=== PATIENT | female | born 1970 | race Caucasian/White ===

== ENCOUNTER 2016-11-09 20:11 | Emergency (ER) | payer SELFPAY ==
[~2016-11-09] VITALS: Ht 157.5 cm; Wt 65.0 kg
[~2016-11-09 20:11] MED LIST: CIPR500T4 PO; IBUP-232 PO; MACR100C PO; PERC5TAB12 PO; SULF1SOL4 LEFT EYE; TOPI100 PO; VENL75 PO
[2016-11-09 20:17] VITALS: BP 154/74; PULSE 74; RESP 20; TEMP 98.3; O2SAT 100
[2016-11-09 20:49] LABS: BLOOD, URINE MOD (NEG); GLUCOSE,URINE NEG (NEG); KETONE, URINE NEG (NEG); NITRITE,URINE NEG (NEG)
[2016-11-09 21:09] LABS: MUCUS URINE OCC /lpf (OCC); URINE COLOR YELLOW (YELLW/STRAW)
[2016-11-09 21:10] LABS: BACTERIA, URINE OCC /hpf; COMMENT (UR) CULT NOT INDICATED; CULTURE IF INDICATED CULT NOT INDICATED; SQUAMOUS EPITHELIAL CELL URINE 0-5 /hpf (0-5); WBC, URINE 0-2 /hpf (0-5)
[2016-11-09 21:52] VITALS: BP 122/94; PULSE 81; RESP 20; O2SAT 100
[2016-11-09] MEDS ORDERED: SODIUM CHLOR 0.9% 1000 ML INJ 1,000 ML IV ONE (21:54)
[2016-11-09] MEDS ORDERED: SODIUM CHLORIDE 0.9% FLUSH 10 ML FLUSH IVF PRN (22:00)
[2016-11-09] MEDS ORDERED: KETOROLAC TROMETHAMINE 30 MG/ML (IVP) VIAL IVP ONE (22:00)
[2016-11-09] MEDS ORDERED: ONDANSETRON HCL 4 MG/2 ML VIAL IVP ONE (22:00)
--- NOTE | 2016-11-09 22:22 | PD ---
HPI Chief Complaint: GI Complaint Time Seen by Provider: 21:54 Travel History International Travel<30 days: No Contact w/Intl Traveler<30days: No Traveled to known affect area: No History of Present Illness HPI 46-year-old female presents to the emergency department for complaint of progressive worsening left flank pain radiating to the left lower quadrant. Patient has urinary urgency. Patient has prior history of kidney stones. Patient has had associated nausea without vomiting. Patient denies fever chills or any recent respiratory illness no chest pain or shortness of breath. Patient does not report any vaginal discharge or abnormal vaginal bleeding. Patient is not noticed any gross hematuria. Patient's taking no medications for symptoms. PFSH Past Medical History Narrative Medical Kidney stones, substance abuse, hepatitis, ovarian cyst, tubal ligation, partial hysterectomy, stent removal; tobacco use alcohol use substance use: Nursing notes reviewed Anxiety: Yes Cancer: No Cardiovascular Problems: No Diminished Hearing: No Endocrine: No Genitourinary: Yes Hepatitis: Yes (PT STATES CONFIRMED B UNSURE ABOUT C) Immune Disorder: No Implanted Vascular Access Dvce: No Kidney Stones: Yes Musculoskeletal: No Neurologic: Yes (PAIN SEEKING TENDENCY) Psychiatric: Yes Reproductive: No Respiratory: No Integumentary: Yes (HISTORY OF MRSA) Immunizations Current: No Seizures: Yes (RELATED TO KIDNEY SURGERY 1998) Tetanus Vaccination: < 5 Years Influenza Vaccination: No ?: Not : 5 Para: 3 Miscarriage: 1 : 1 Ovarian Cysts: Yes (RIGHT OOPHARECTOMY ) Tubal Ligation: Yes Past Surgical History Abdominal Surgery: Yes (kidney surgery on ureters for reflux & stones) Genitourinary Surgery: Yes (stents REMOVED ABOUT 3 YR AGO kidney stones ) Gynecologic Surgery: Yes (RT OVARY REMOVED) Hysterectomy: Yes (PARTIAL ) Other Surgery: Yes (CARCINOMA) Social History Alcohol Use: Yes (OCCASIONALLY, SOCIALLY) Tobacco Use: Yes (1/2 PPD) Substance Use: Yes (HX IV DRUG USE, COCAINE, POLYSUBSTANCE USE) Allergies-Medications (Allergen,Severity, Reaction): Coded Allergies: No Known Allergies (Unverified , 11/09/16) Reported Meds & Prescriptions Reported Meds & Active Scripts Active Flomax (Tamsulosin HCl) 0.4 Mg Cap 0.4 Mg PO HS Zofran Odt (Ondansetron Odt) 4 Mg Tab 4 Mg SL Q6HR PRN Ibuprofen 600 Mg Tab 600 Mg PO Q6H PRN Percocet (Oxycodone-Acetaminophen) 5-325 mg Tab 1 Tab PO Q6H PRN Review of Systems Except as stated in HPI: all other systems reviewed are Neg General / Constitutional: No: Fever, Chills HENT: No: Congestion Cardiovascular: No: Chest Pain or Discomfort Respiratory: No: Shortness of Breath Gastrointestinal: Positive: Nausea, No: Vomiting, Abdominal Pain Genitourinary: Positive: Flank Pain, No: Dysuria, Hematuria Skin: No Rash Neurologic: No: Weakness Endocrine: No: Heat Intolerance Hematologic/Lymphatic: No: Easy Bruising Physical Exam Narrative GENERAL: Well-developed well-nourished female in no acute distress no respiratory distress SKIN: Warm and dry. HEAD: Normocephalic. EYES: No scleral icterus. No injection or drainage. NECK: Supple, trachea midline. No JVD or lymphadenopathy. CARDIOVASCULAR: Regular rate and rhythm without murmurs, gallops, or rubs. RESPIRATORY: Breath sounds equal bilaterally. No accessory muscle use. GASTROINTESTINAL: Abdomen soft, non-tender, nondistended. MUSCULOSKELETAL: No cyanosis, or edema. BACK: Nontender without obvious deformity. No CVA tenderness. Data Data Last Documented VS Vital Signs Date Time Temp Pulse Resp B/P (MAP) Pulse Ox O2 Delivery O2 Flow Rate FiO2 11/09/16 23:12 18 11/09/16 22:47 72 119/74 (89) 97 Room Air 11/09/16 20:17 98.3 Orders Orders Urinalysis - C+S If Indicated (11/09/16 20:25) Ed Urine Pregnancytest Poc (11/09/16 20:25) Complete Blood Count With Diff (11/09/16 21:54) Basic Metabolic Panel (Bmp) (11/09/16 21:54) Ct Abd/Pel W/O Iv Contrast (11/09/16 21:54) Ecg Monitoring (11/09/16 21:54) Iv Access Insert/Monitor (11/09/16 21:54) Ketorolac Inj (Toradol Inj) (11/09/16 22:00) Ondansetron Inj (Zofran Inj) (11/09/16 22:00) Sodium Chloride 0.9% Flush (Ns Flush) (11/09/16 22:00) Sodium Chlor 0.9% 1000 Ml Inj (Ns 1000 M (11/09/16 21:54) Tamsulosin (Flomax) (11/09/16 23:30) Hydromorphone Pf Inj (Dilaudid Pf Inj) (11/09/16 23:30) Labs Laboratory Tests Test 11/09/16 20:30 11/09/16 22:30 Urine Color YELLOW Urine Turbidity SLIGHT Urine pH 6.0 Urine Specific [place] 1.019 Urine Protein NEG mg/dL Urine Glucose (UA) NEG mg/dL Urine Ketones NEG mg/dL Urine Occult Blood MOD Urine Nitrite NEG Urine Bilirubin NEG Urine Leukocyte Esterase NEG Urine RBC 10-14 /hpf Urine WBC 0-2 /hpf Urine Squamous Epithelial Cells 0-5 /hpf Urine Bacteria OCC /hpf Urine Mucus OCC /lpf Urine Yeast (Budding) RARE Microscopic Urinalysis Comment CULT NOT INDICATED White Blood Count 6.6 TH/MM3 Red Blood Count 4.91 MIL/MM3 Hemoglobin 13.5 GM/DL Hematocrit 40.2 % Mean Corpuscular Volume 81.9 FL Mean Corpuscular Hemoglobin 27.5 PG Mean Corpuscular Hemoglobin Concent 33.6 % Red Cell Distribution Width 13.4 % Platelet Count 225 TH/MM3 Mean Platelet Volume 8.5 FL Neutrophils (%) (Auto) 80.9 % Lymphocytes (%) (Auto) 10.2 % Monocytes (%) (Auto) 5.4 % Eosinophils (%) (Auto) 2.1 % Basophils (%) (Auto) 1.4 % Neutrophils # (Auto) 5.3 TH/MM3 Lymphocytes # (Auto) 0.7 TH/MM3 Monocytes # (Auto) 0.4 TH/MM3 Eosinophils # (Auto) 0.1 TH/MM3 Basophils # (Auto) 0.1 TH/MM3 CBC Comment DIFF FINAL Differential Comment Blood Urea Nitrogen 14 MG/DL Creatinine 0.65 MG/DL Random Glucose 87 MG/DL Calcium Level 9.1 MG/DL Sodium Level 137 MEQ/L Potassium Level 3.9 MEQ/L Chloride Level 105 MEQ/L Carbon Dioxide Level 25.0 MEQ/L Anion Gap 7 MEQ/L Estimat Glomerular Filtration Rate 99 ML/MIN MDM Medical Decision Making Medical Screen Exam Complete: Yes Emergency Medical Condition: Yes Medical Record Reviewed: Yes Interpretation(s) Urinalysis positive red blood cells occult blood culture not indicated Vital Signs Date Time Temp Pulse Resp B/P (MAP) Pulse Ox O2 Delivery O2 Flow Rate FiO2 11/09/16 22:47 72 20 119/74 (89) 97 Room Air 11/09/16 21:52 81 20 122/94 (103) 100 11/09/16 20:17 98.3 74 20 154/74 (100) 100 CBC & BMP Diagram 11/09/16 22:[address] abdomen and pelvis without IV contrast reading per radiologist Dr. Franklin Barrientos 4 mm calculus distal left ureter with left-sided obstructive uropathy with mild left hydronephrosis additional nonobstructing calculi in both kidneys 2.4 cm left ovarian cyst Differential Diagnosis UTI, pyelonephritis, renal colic, colitis, diverticulitis, musculoskeletal pain , chronic pain syndrome Narrative Course IV access obtained specimens collected and sent for resulting patient given Toradol 30 mg IV Zofran 4 mg IV 1 L normal saline for CT kidney stone protocol ordered CBC metabolic panel values are normal range urinalysis culture indicated blood is noted RBCs; CT is remarkable for 4 mm distal ureteral stone at the UVJ with some obstructive uropathy and dilated ureter and mild left-sided hydronephrosis Patient has received IV fluids and Toradol Patient aware of imaging results; patient given Flomax 0.4 mg by mouth and a one -time dose of Dilaudid 1 mg IV for ongoing pain. Patient will be discharged to home and recommended follow-up with urologist. Diagnosis Primary Impression: Obstructive uropathy Additional Impressions: Ureterolithiasis Ovarian cyst Qualified Codes: N83.202 - Unspecified ovarian cyst, left side Referrals: Urologist call for appointment Call office in a.m. to schedule follow-up appointment and as needed with urologist inclusion specialist urologist is Dr. Padron's Patient Instructions: General Instructions Additional Instructions: Strain urine Increase fluid hydration Follow-up with urologist Take pain medication as prescribed as needed Take ibuprofen/Advil/Motrin 600 mg as often as every 6 hours as needed for pain associated with inflammation Take Flomax as prescribed Return to the emergency department for any concerns or change in condition Take acetaminophen/Tylenol as needed for fever 100.4F or greater Med/Other Pt SpecificInfo: Prescription(s) given Scripts Tamsulosin (Flomax) 0.4 Mg Cap 0.4 MG PO HS for Manage Prostate Problems, #5 CAP 0 Refills Prov: Dianelys An MD 11/09/16 Ondansetron Odt (Zofran Odt) 4 Mg Tab 4 MG SL Q6HR Y for Nausea/Vomiting, #10 TAB 0 Refills Prov: Dianelys An MD 11/09/16 Ibuprofen (Ibuprofen) 600 Mg Tab 600 MG PO Q6H Y for Pain/Inflammation, #15 TAB 0 Refills Prov: Dianelys An MD 11/09/16 Oxycodone-Acetaminophen (Percocet) 5-325 mg Tab 1 TAB PO Q6H Y for PAIN, #7 TAB 0 Refills Prov: Dianelys An MD 11/09/16 Disposition: 01 DISCHARGE HOME Condition: Stable Dianelys An MD Nov 09, 2016 22:22
[2016-11-09 22:43] LABS: AUTOMATED NEUTROPHIL # 5.3 TH/MM3 (1.8-7.7); BASOPHIL # 0.1 TH/MM3 (0-0.2); BASOPHIL % 1.4 % (0.0-2.0); EOSINOPHIL # 0.1 TH/MM3 (0-0.4); EOSINOPHIL % 2.1 % (0.0-4.0); HEMATOCRIT 40.2 % (35.0-46.0); LYMPH % 10.2 % (9.0-44.0); LYMPHOCYTE # 0.7 TH/MM3 (1.0-4.8); MEAN CELL VOLUME 81.9 FL (80.0-100.0); MEAN CORPUSCULAR HEMOGLOBIN 27.5 PG (27.0-34.0); MEAN CORPUSCULAR HGB CONC 33.6 % (32.0-36.0); MONO % 5.4 % (0.0-8.0); NEUT % 80.9 % (16.0-70.0); PLATELET COUNT 225 TH/MM3 (150-450); RED BLOOD COUNT 4.91 MIL/MM3 (4.00-5.30); RED CELL DISTRIBUTION WIDTH 13.4 % (11.6-17.2); WHITE BLOOD COUNT 6.6 TH/MM3 (4.0-11.0)
[2016-11-09 22:47] VITALS: BP 119/74; PULSE 72; RESP 20; O2SAT 97
[2016-11-09 22:52] LABS: POTASSIUM 3.9 MEQ/L (3.5-5.1)
[2016-11-09 23:00] LABS: HEMO FLAGS DIFF FINAL
--- NOTE | 2016-11-09 23:18 | RADRPT ---
EXAM DATE/TIME: 11/09/2016 22:58 [facility] COMPARISON: No previous studies available for comparison. INDICATIONS : Left flank pain. ORAL CONTRAST: No oral contrast ingested. RADIATION DOSE: 10.62 CTDIvol (mGy) MEDICAL HISTORY : Renal calculi. SURGICAL HISTORY : Hysterectomy. Right ureteral surgery. Right oopharectomy. ENCOUNTER: Initial ACUITY: 1 day PAIN SCALE: 10/10 LOCATION: Left flank TECHNIQUE: Volumetric scanning of the abdomen and pelvis was performed. Using automated exposure control and ad justment of the mA and/or kV according to patient size, radiation dose was kept as low as reasonably achievable to obtain optimal diagnostic quality images. DICOM format image data is available electro nically for review and comparison. FINDINGS: Lung bases clear. No acute findings in the liver, spleen, adrenals or pancreas. There are numerous small nonobstructing right renal calculi ranging in size from submillimeter to abo ut 3-4 mm in the lower pole. Also tiny 1 mm calculi mid and lower pole left kidney. There is a left-s ided obstructive uropathy with mild left hydronephrosis and ureteral dilatation above a 4 mm calculus in the distal left ureter. Calcified phleboliths also present in the pelvis. No bowel obstruction. No free air or free fluid. No adenopathy. Incidental 2.4 cm left adnexal cyst. CONCLUSION: 1. 4 mm calculus distal left ureter with left-sided obstructive uropathy and mild left hydronephrosis . Additional nonobstructing calculi in both kidneys. 2. 2.4 cm left ovarian cyst. Franklin Barrientos MD on November 09, 2016 at 23:11 Board Certified Radiologist. This report was verified electronically.
[2016-11-09] MEDS ORDERED: HYDROmorphone HCL PF 1 MG/ML VIAL IV PUSH ONE (23:30)
[2016-11-09] MEDS ORDERED: TAMSULOSIN HCL 0.4 MG CAP PO ONE (23:30)
[2016-11-09] MEDS ORDERED: IBUP-232 PO (23:31)
[2016-11-09] MEDS ORDERED: PERC5TAB12 PO (23:31)
[2016-11-09] MEDS ORDERED: ZOFR4TAB3 SL (23:31)
[2016-11-09] MEDS ORDERED: TAMS5CAP PO (23:31)
[2016-11-09 23:37] VITALS: BP 116/68; PULSE 77; RESP 18; O2SAT 100
[2016-11-10 00:03] VITALS: RESP 20
== END 2016-11-10 00:11 | disposition home or self-care (01) ==
LOC: PHED 20:11
DX: N13.2 Hydronephrosis with renal and ureteral calculous obstruction (principal); N83.202 Unspecified ovarian cyst, left side; Z87.442 Personal history of urinary calculi
CPT/HCPCS: 74176; 80048; 81001; 84703; 85025; 96361; 96374; 96375; 99285; J1170; J1885; J2405; J7030